=== PATIENT | male | born 1935 | race Caucasian/White ===

== ENCOUNTER → 2016-09-24 | Outpatient (CLI) | payer BC ==
[~2016-09-24] MED LIST: ASPEC81; CENTTAB41; FINA5TAB; FSM70; TERA5CAP; ZOCOR PO
[2016-09-24 18:26] LABS: ALT/SGPT 52 U/L (12-78); AST/SGOT 47 U/L (15-37); BLOOD UREA NITROGEN 23 mg/dl (7-18); BUN/CREATININE RATIO 22.7 (10-20); CALCIUM 9.1 mg/dl (8.5-10.1); CARBON DIOXIDE 29 mmol/L (21-32); CHLORIDE 106 mmol/L (98-107); GLUCOSE 93 mg/dl (70-99); POTASSIUM 4.4 mmol/L (3.5-5.1); SODIUM 141 mmol/L (136-145)
[2016-09-24 18:29] LABS: ALB/GLOB RATIO 1.3 (0.9-2); ALKALINE PHOSPHATASE 52 U/L (45-117); CHOLESTEROL 135 mg/dl (0-200); CHOLESTEROL/HDL RATIO 3.4; HDL CHOLESTEROL 40 mg/dl; LDL CHOLESTEROL CALCULATED 71 mg/dl; TRIGLYCERIDES 122 mg/dl (0-150); VERY LOW DENSITY LIPOPROT CALC 24 mg/dl
--- NOTE | 2016-10-02 12:09 | EDITING REQUIRED CODING QUERY ---
SUPPORTING DIAGNOSIS NEEDED A supporting diagnosis is required for the test/procedure performed on this patient in order for us to be reimbursed by the patient's insurance. Please provide a supporting diagnosis for the following test/procedure listed below next to the test name along with your signature. *If there is no additional diagnosis for this patient that would support the following test/procedure please document that below next to the test/procedure. Test(s)/Procedure(s) that require a supporting diagnosis: * VITAMIN D 1,25 DIHYDROXY DIAGNOSIS:Z87.39 * DOS: 09/24/16 Provider Signature: Date: Thank you Radha Whittaker Health Information Management For questions please call [phone]
== END | disposition home or self-care (01) ==
LOC: C.LABPVFM 10:58
PROVIDERS: ATTEND Internal Medicine Cardiovascular Disease
DX: Z00.00 Encounter for general adult medical examination without abnormal findings (principal); E78.5 Hyperlipidemia, unspecified; M85.80 Other specified disorders of bone density and structure, unspecified site; Z87.39 Personal history of other diseases of the musculoskeletal system and connective tissue

== ENCOUNTER → 2017-02-18 | Outpatient (CLI) | payer BC ==
[2017-02-18 18:23] LABS: BLOOD UREA NITROGEN 24 mg/dl (7-18)
== END | disposition home or self-care (01) ==
LOC: C.LABPVFM 14:03
PROVIDERS: ATTEND Urology
DX: N40.1 Benign prostatic hyperplasia with lower urinary tract symptoms (principal); N52.9 Male erectile dysfunction, unspecified

== ENCOUNTER → 2017-07-21 | Outpatient (CLI) | payer BC | END | disposition home or self-care (01) | LOC: C.MAMM 08:00 | PROVIDERS: ATTEND Family Medicine | DX: M81.8 Other osteoporosis without current pathological fracture (principal) ==

== ENCOUNTER → 2017-09-29 | Outpatient (CLI) | payer BC ==
[2017-09-29 14:38] LABS: ALBUMIN 3.8 gm/dl (3.4-5.0); ALT/SGPT 46 U/L (12-78); AST/SGOT 42 U/L (15-37); BLOOD UREA NITROGEN 21 mg/dl (7-18); CALCIUM 9.3 mg/dl (8.5-10.1); CARBON DIOXIDE 26 mmol/L (21-32); CHOLESTEROL 127 mg/dl (0-200); CREATININE 1.08 mg/dl (0.60-1.40); GLUCOSE 97 mg/dl (70-99); SODIUM 139 mmol/L (136-145)
[2017-09-29 14:40] LABS: ALKALINE PHOSPHATASE 43 U/L (45-117); LDL CHOLESTEROL CALCULATED 64 mg/dl; TOTAL PROTEIN 7.1 gm/dl (6.4-8.2)
== END | disposition home or self-care (01) ==
LOC: C.LABPVFM 09:15
PROVIDERS: ATTEND Internal Medicine Cardiovascular Disease
DX: E78.5 Hyperlipidemia, unspecified (principal); I10 Essential (primary) hypertension

== ENCOUNTER 2021-04-13 01:30 | Inpatient (IN) ==
[2021-04-13] MEDS ORDERED: SODIUM CHLORIDE 0.9% 500 ML IV ONE (01:45)
[2021-04-13 02:18] LABS: Basophils # (auto) 0.01 K/uL (0-0.2); Basophils % (auto) 0.3 %; Hematocrit (blood only) 42.9 % (42-52); Hemoglobin 14.9 g/dL (14.0-18.0); Lymphocytes # (auto) 0.32 K/uL (1.2-3.4); Lymphocytes % (auto) 8.6 %; Mean Corpuscular Hemoglobin 31.6 pg (25-34); Mean Corpuscular Hgb Conc 34.7 g/dL (32-36); Mean Corpuscular Volume 90.9 fL (80-100); Mean Platelet Volume 9.5 fL (7.4-10.4); Monocytes # (auto) 0.41 K/uL (0.11-0.59); Neutrophils # (auto) 2.98 K/uL (1.4-6.5); Neutrophils % (auto) 80.1 %; Platelet Count 157 K/uL (130-400); RDW Coefficient of Variation 13.5 % (11.5-14.5); RDW Standard Deviation 44.6 fL (36.4-46.3); Red Blood Count 4.72 M/uL (4.7-6.1); White Blood Count 3.72 K/uL (4.8-10.8)
[2021-04-13] MEDS ORDERED: PIPERACILLIN/TAZOBACTAM 4.5 GM/120 ML BAG IV ONE (02:20)
[2021-04-13] MEDS ORDERED: PIPERACILL/TAZOBAC CONSULT ACTIVE PRN (02:20)
[2021-04-13 02:30] LABS: INR 1.1 (0.9-1.1); Partial Thromboplastin Ratio 0.8; Partial Thromboplastin Time 22.2 Seconds (21.0-31.0); Prothrombin Time 10.8 Seconds (9.0-12.0)
[2021-04-13 02:39] LABS: Alanine Aminotransferase 49 U/L (12-78); Albumin Level 3.6 gm/dl (3.4-5.0); Aspartate Aminotransferase 42 U/L (15-37); Blood Urea Nitrogen 24 mg/dl (7-18); Calcium 9.1 mg/dl (8.5-10.1); Carbon Dioxide 28 mmol/L (21-32); Chloride 107 mmol/L (98-107); Est GFR (African American) 56.9 ml/min; Est GFR (Non-African American) 49.1 ml/min; Glucose 111 mg/dl (70-99); Magnesium 1.5 mg/dl (1.8-2.4); Potassium 3.8 mmol/L (3.5-5.1); Sodium 137 mmol/L (136-145)
[2021-04-13 02:47] LABS: Albumin Globulin Ratio 1.1 (0.9-2); Alkaline Phosphatase 45 U/L (45-117); Bilirubin,Total 1.7 mg/dl (0.2-1); Globulin 3.3 gm/dl (2.5-4.0); Total Protein 6.9 gm/dl (6.4-8.2); Troponin I < 0.015 ng/ml (0-0.045)
[2021-04-13] MEDS ORDERED: OPTIRAY 320 100ml IV ONE (03:29)
--- NOTE | 2021-04-13 03:35 | Emergency Department Note ---
Impression & Plan Sepsis, Mucosal tear of esophagus, Aspiration pneumonia Admit to the [facility] service ED Provider Note NAME: ANTON SOLOMON AGE: 85 SEX: M ARRIVES VIA: Walk-In INFORMANT: Patient, and his son ED PROVIDER(S): Patsy Davidson DO CHIEF COMPLAINT: Fever PLAN: Disposition: Admit to the [facility] Condition: Guarded MEDICAL DECISION MAKING: This is an 85-year-old male patient who presents to the emergency department with a fever. The patient had an EGD earlier today for a food impaction. This had caused a esophageal mucosal tear which had to be repaired with surgical clips. The patient was discharged home and developed a fever. The family brought him here for evaluation. He presented with tachycardia and hypotension. CT scan of the chest revealed no obvious abscess formation but there was some evidence of dependent findings in the lung which were concerning for aspiration pneumonia. The patient was treated with IV Zosyn. He was treated with IV crystalloid therapy for hypotension and tachycardia. The patient had no respiratory distress or hypoxia upon presentation. Triage Nursing notes reviewed and agree with them. Additional history obtained from son Prior medical records reviewed the EGD report Vital Signs: reviewed and remarkable for hypotension Differential diagnosis: Sepsis; septic shock, aspiration, abscess formation around the esophagus, hypoxia ER treatment provided: IV normal saline bolus IV Zosyn Diagnostics interpreted by me: ECG: Normal sinus rhythm at [address] segment elevation or signs of ischemia Cardiac Monitoring: Normal sinus rhythm at 94 Laboratory studies: See below Imaging studies: As per stat rad CT chest: No previous study for comparison. Heart is normal in size. There is moderate coronary artery atherosclerotic change. There are mild atherosclerotic changes in the thoracic aorta. Metallic foreign bodies associated with the GE junction likely reflect surgical vascular clips. There is mild esophageal wall thickening without a drainable fluid collection. Posterior mediastinal appears normal without abnormal mass or fluid collection. Central airways appear normal. There is some patchy areas of consolidation in the dependent lungs bilaterally and in the left upper lobe findings may reflect an aspiration pneumonia. Impression: Areas of dependent airspace opacity in the lower lobe suggesting an aspiration pneumonia. Surgical changes associated with GE junction. HPI: 85/M arrives for evaluation of fever. Patient had an EGD performed earlier today for him food impaction secondary to eating chestnuts. During that evaluation, the patient was noted to have a mucosal tear of the esophagus which was repaired with surgical clips. Later this evening, the patient developed a fever and was brought to the emergency department for evaluation. Upon presentation he was noted to be tachycardic and hypotensive. He was fluid resuscitated with IV crystalloid therapy and on CT scan of the chest no abscess formation was noted but there was evidence of dependent findings in the lung concerning for aspiration pneumonia. The patient was treated with IV Zosyn and normal saline solution. ROS: See above HPI for pertinent positives & negatives. A total of 10 systems reviewed and were otherwise negative. PAST MEDICAL HISTORY:See Below PAST SURGICAL HISTORY:See Below FAMILY HISTORY:See Below SOCIAL HISTORY:See Below HOME MEDICATIONS:See list ALLERGIES:None VITALS:See Below PHYSICAL EXAMINATION: HEENT: Head - normocephalic and atraumatic Pupils are equal, round, and reactive to light. Extraocular eye muscles are intact, and sclera are anicteric. Nose - moist nasal mucosa without discharge. Mouth - moist buccal mucosa. Oropharynx is nonerythematous and there is no tonsillar exudate or edema noted. Neck: Supple; no JVD, nuchal rigidity or cervical lymphadenopathy Heart: Tachycardic rate and regular rhythm. There is a normal S1 and S2 with no murmurs, clicks, or gallops appreciated. Lungs: Clear to auscultation bilaterally with no wheezes, rales, or rhonchi. Abdomen: Soft, completely nontender, nondistended, with good bowel sounds. There are no palpable pulsatile masses or hepatosplenomegaly. There is no guarding, rigidity, or rebound noted. Extremities: No evidence of cyanosis, clubbing, or edema. There are easily palpable peripheral pulses. Skin: warm and dry with good turgor and no rashes. ED COURSE: Times/Reassessments: 0145 the patient was evaluated in room B6. A septic protocol was performed. Reviewed the reports from the EGD from earlier today. 2 IV locks were initiated as the patient was hypotensive and he was bolused with IV normal saline solution. The patient was given a dose of IV Zosyn as his lactic acid was elevated. The patient was in no respiratory distress on exam. Reviewed the results of the laboratory studies and CT scan with the patient and his son Radha the case with the [facility] hospitalist and they will evaluate for further management. 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) Fusion of spine CERVICAL > UNSURE WHICH NUMBERS > SCREWS AND PLATE > ROM IS GOOD History of trigger finger Impotence Inhibited sexual excitement Osteoarthritis Osteopenia Skin cancer HX >NOT SURE WHICH TYPE Slow to wake up after anesthesia Surgical History H/O cervical spine surgery H/O prostate biopsy History of arthroscopy RIGHT History of cataract surgery (2018) Right History of colonoscopy (2007) History of hip surgery LEFT > PIN AND SCREWS History of prostate surgery TUNA Hx of vasectomy S/P trigger finger release X5 Family History Brother Prostate cancer Father Prostate cancer Daughter Breast cancer Denies family history of Ovarian cancer Myocardial infarction Colorectal cancer Social History Smoking Status: Former smoker Second Hand Exposure: No; Hx Alcohol Use: Yes Alcohol type: beer Alcohol Intake Frequency: 2-4 x/Month Alcohol Intake Frequency Comment: One or two drinks a week Hx Substance Use: No Preferred Language: Swazi Communication Ability: Effective Car Stereo Installer Required: No Beliefs That Will Affect Care: None marital status: Current Living Situation: Spouse current occupational status: retired Feels Safe at Home: Yes caffeine: No Dental Care, Regularly: No Physical Activity Frequency: Daily Physical Activity Frequency Comment: Walking 1-2 miles a day Seatbelt Use: always Sunscreen Use: Yes Assistive Devices: Oxygen - Continuous Allergies Allergies Allergy/AdvReac Type Severity Reaction Status Date / Time Penicillins Allergy Mild RASH Verified 04/13/21 01:34 Home Meds Home Medications Medication Instructions Recorded Confirmed aspirin 81 mg tablet,delayed 81 mg PO PM tab 03/29/19 04/13/21 release [id number] acid 300 1 tab PO PM 03/30/19 04/13/21 mcg-lycopene 600 mcg-lutein 300 mcg tablet (Centrum Silver Men) calcium carbonate 300 mg (750 mg) 600 mg PO QAM tab 05/13/19 04/13/21 chewable tablet cholecalciferol (vitamin D3) 125 5,000 unit PO QAM 05/14/19 04/13/21 mcg (5,000 unit) tablet (Vitamin D3) Previous Rx's Medication Instructions Recorded metoprolol succinate 50 mg 50 mg PO QAM #90 tab 05/09/20 tablet,extended release 24 hr terazosin 5 mg capsule 5 mg PO QPM #90 cap 10/12/20 triamterene 37.5 1 tab PO WEEKLY #30 tab 01/06/21 mg-hydrochlorothiazide 25 mg tablet finasteride 5 mg tablet 5 mg PO DAILY #90 tab 02/20/21 simvastatin 10 mg tablet 10 mg PO PM #90 tab 03/16/21 Results & Data (ED) Vital Signs Vital Signs - 24 hr 04/13/21 01:34 04/13/21 01:58 04/13/21 02:00 Temperature 37.2 C Temperature Source Oral Pulse Rate 110 H 99 H 103 H Pulse Rate from SpO2 Sensor 100 H 104 H Respiratory Rate 18 22 16 Respiratory Effort / Characteristics Non-Labored Spontaneous Respiratory Depth Normal Respiratory Pattern Regular Blood Pressure 96/61 L 89/63 L Blood Pressure Mean 72 71 Pulse Oximetry 89 L 91 92 Oxygen Delivery Method Room Air Oxygen Flow Rate Sepsis Recent Fever Within 48 Hours Yes Sepsis New/Unexplained Change in Mental Status No Sepsis Action Taken by Nursing Physician Notified 04/13/21 02:01 04/13/21 02:19 04/13/21 02:30 Temperature Temperature Source Pulse Rate 94 H 96 H Pulse Rate from SpO2 Sensor 96 H Respiratory Rate 18 20 Respiratory Effort / Characteristics Respiratory Depth Respiratory Pattern Blood Pressure 131/69 Blood Pressure Mean 89 Pulse Oximetry 92 93 94 Oxygen Delivery Method Nasal Cannula Nasal Cannula Oxygen Flow Rate 3 3 Sepsis Recent Fever Within 48 Hours Sepsis New/Unexplained Change in Mental Status Sepsis Action Taken by Nursing 04/13/21 02:38 04/13/21 03:00 04/13/21 04:00 Temperature 37.5 C Temperature Source Oral Pulse Rate 91 H 94 H Pulse Rate from SpO2 Sensor 90 94 H Respiratory Rate 21 17 Respiratory Effort / Characteristics Respiratory Depth Respiratory Pattern Blood Pressure 124/62 122/79 Blood Pressure Mean 82 93 Pulse Oximetry 91 92 Oxygen Delivery Method Oxygen Flow Rate Sepsis Recent Fever Within 48 Hours Sepsis New/Unexplained Change in Mental Status Sepsis Action Taken by Nursing 04/13/21 04:30 04/13/21 04:35 04/13/21 04:40 Temperature Temperature Source Pulse Rate 94 H 92 H 90 Pulse Rate from SpO2 Sensor 94 H 91 H 90 Respiratory Rate 17 18 17 Respiratory Effort / Characteristics Respiratory Depth Respiratory Pattern Blood Pressure 107/64 Blood Pressure Mean 78 Pulse Oximetry 92 93 93 Oxygen Delivery Method Oxygen Flow Rate Sepsis Recent Fever Within 48 Hours Sepsis New/Unexplained Change in Mental Status Sepsis Action Taken by Nursing 04/13/21 04:45 04/13/21 04:50 04/13/21 04:55 Temperature Temperature Source Pulse Rate 90 91 H 90 Pulse Rate from SpO2 Sensor 89 91 H 90 Respiratory Rate 19 19 18 Respiratory Effort / Characteristics Respiratory Depth Respiratory Pattern Blood Pressure Blood Pressure Mean Pulse Oximetry 92 93 92 Oxygen Delivery Method Oxygen Flow Rate Sepsis Recent Fever Within 48 Hours Sepsis New/Unexplained Change in Mental Status Sepsis Action Taken by Nursing 04/13/21 05:11 04/13/21 05:15 04/13/21 05:20 Temperature Temperature Source Pulse Rate 100 H 96 H Pulse Rate from SpO2 Sensor 99 H 103 H 96 H Respiratory Rate 23 18 18 Respiratory Effort / Characteristics Respiratory Depth Respiratory Pattern Blood Pressure Blood Pressure Mean Pulse Oximetry 89 L 93 92 Oxygen Delivery Method Oxygen Flow Rate Sepsis Recent Fever Within 48 Hours Sepsis New/Unexplained Change in Mental Status Sepsis Action Taken by Nursing 04/13/21 05:25 04/13/21 05:30 04/13/21 05:35 Temperature Temperature Source Pulse Rate 95 H 96 H 99 H Pulse Rate from SpO2 Sensor 95 H 96 H 99 H Respiratory Rate 17 24 19 Respiratory Effort / Characteristics Respiratory Depth Respiratory Pattern Blood Pressure Blood Pressure Mean Pulse Oximetry 91 92 91 Oxygen Delivery Method Oxygen Flow Rate Sepsis Recent Fever Within 48 Hours Sepsis New/Unexplained Change in Mental Status Sepsis Action Taken by Nursing 04/13/21 05:40 04/13/21 05:45 04/13/21 05:50 Temperature Temperature Source Pulse Rate 98 H 94 H 94 H Pulse Rate from SpO2 Sensor 98 H 95 H 95 H Respiratory Rate 17 18 20 Respiratory Effort / Characteristics Respiratory Depth Respiratory Pattern Blood Pressure Blood Pressure Mean Pulse Oximetry 91 91 91 Oxygen Delivery Method Oxygen Flow Rate Sepsis Recent Fever Within 48 Hours Sepsis New/Unexplained Change in Mental Status Sepsis Action Taken by Nursing 04/13/21 05:55 04/13/21 06:00 Temperature Temperature Source Pulse Rate 91 H 93 H Pulse Rate from SpO2 Sensor 91 H 94 H Respiratory Rate 20 17 Respiratory Effort / Characteristics Respiratory Depth Respiratory Pattern Blood Pressure 89/54 L Blood Pressure Mean 65 Pulse Oximetry 91 91 Oxygen Delivery Method Oxygen Flow Rate Sepsis Recent Fever Within 48 Hours Sepsis New/Unexplained Change in Mental Status Sepsis Action Taken by Nursing Laboratory Data Result diagrams: 04/13/21 01:45 04/13/21 10:10 Lab Results 04/13/21 04/13/21 04/13/21 Range/Units 01:45 01:45 01:45 WBC 3.72 L (4.8-10.8) K/uL RBC 4.72 (4.7-6.1) M/uL Hgb 14.9 (14.0-18.0) g/dL Hct 42.9 (42-52) % MCV 90.9 (80-100) fL MCH 31.6 (25-34) pg MCHC 34.7 (32-36) g/dL RDW Std Deviation 44.6 (36.4-46.3) fL RDW Coeff of Reina 13.5 (11.5-14.5) % Plt Count 157 (130-400) K/uL MPV 9.5 (7.4-10.4) fL Immature Gran % (Auto) 0.0 % Neut % (Auto) 80.1 % Lymph % (Auto) 8.6 % [place] % (Auto) 11.0 % Eos % (Auto) 0.0 % Baso % (Auto) 0.3 % Neut # (Auto) 2.98 (1.4-6.5) K/uL Lymph # (Auto) 0.32 L (1.2-3.4) K/uL [place] # (Auto) 0.41 (0.11-0.59) K/uL Eos # (Auto) 0.00 (0-0.5) K/uL Baso # (Auto) 0.01 (0-0.2) K/uL Immature Gran # (Auto) 0.00 (0.00-0.02) K/uL PT 10.8 (9.0-12.0) Seconds INR 1.1 (0.9-1.1) APTT 22.2 (21.0-31.0) Seconds PTT Ratio 0.8 Sodium 137 (136-145) mmol/L Potassium 3.8 (3.5-5.1) mmol/L Chloride 107 (98-107) mmol/L Carbon Dioxide 28 (21-32) mmol/L Anion Gap 2.0 L (3-11) BUN 24 H (7-18) mg/dl Creatinine 1.33 D (0.6-1.4) mg/dl Est Cr Clr Drug Dosing 43.0 ml/min Est GFR ( Amer) 56.9 ml/min Est GFR (Non-Af Amer) 49.1 ml/min BUN/Creatinine Ratio 18.0 (10-20) Glucose 111 H (70-99) mg/dl Lactate (0.4-2.0) mmol/L Calcium 9.1 (8.5-10.1) mg/dl Magnesium 1.5 L (1.8-2.4) mg/dl Total Bilirubin 1.7 H D (0.2-1) mg/dl AST 42 H (15-37) U/L ALT 49 (12-78) U/L Alkaline Phosphatase 45 (45-117) U/L Troponin I < 0.015 (0-0.045) ng/ml Total Protein 6.9 (6.4-8.2) gm/dl Albumin 3.6 (3.4-5.0) gm/dl Globulin 3.3 (2.5-4.0) gm/dl Albumin/Globulin Ratio 1.1 (0.9-2) Procalcitonin (0-0.5) ng/ml Urine Color Urine Appearance (Clear) Urine pH (4.5-7.5) Ur Specific [place] (1.000-1.030) Urine Protein (Negative) Urine Glucose (UA) (Negative) Urine Ketones (Negative) Urine Blood (Negative) Urine Nitrite (Negative) Urine Bilirubin (Negative) Urine Urobilinogen (Negative) Ur Leukocyte Esterase (Negative) COVID-19 Eval Order SARS-CoV-2 (PCR) (Negative) 04/13/21 04/13/21 04/13/21 Range/Units 01:45 02:00 02:00 WBC (4.8-10.8) K/uL RBC (4.7-6.1) M/uL Hgb (14.0-18.0) g/dL Hct (42-52) % MCV (80-100) fL MCH (25-34) pg MCHC (32-36) g/dL RDW Std Deviation (36.4-46.3) fL RDW Coeff of Reina (11.5-14.5) % Plt Count (130-400) K/uL MPV (7.4-10.4) fL Immature Gran % (Auto) % Neut % (Auto) % Lymph % (Auto) % [place] % (Auto) % Eos % (Auto) % Baso % (Auto) % Neut # (Auto) (1.4-6.5) K/uL Lymph # (Auto) (1.2-3.4) K/uL [place] # (Auto) (0.11-0.59) K/uL Eos # (Auto) (0-0.5) K/uL Baso # (Auto) (0-0.2) K/uL Immature Gran # (Auto) (0.00-0.02) K/uL PT (9.0-12.0) Seconds INR (0.9-1.1) APTT (21.0-31.0) Seconds PTT Ratio Sodium (136-145) mmol/L Potassium (3.5-5.1) mmol/L Chloride (98-107) mmol/L Carbon Dioxide (21-32) mmol/L Anion Gap (3-11) BUN (7-18) mg/dl Creatinine (0.6-1.4) mg/dl Est Cr Clr Drug Dosing ml/min Est GFR ( Amer) ml/min Est GFR (Non-Af Amer) ml/min BUN/Creatinine Ratio (10-20) Glucose (70-99) mg/dl Lactate (0.4-2.0) mmol/L Calcium (8.5-10.1) mg/dl Magnesium (1.8-2.4) mg/dl Total Bilirubin (0.2-1) mg/dl AST (15-37) U/L ALT (12-78) U/L Alkaline Phosphatase (45-117) U/L Troponin I (0-0.045) ng/ml Total Protein (6.4-8.2) gm/dl Albumin (3.4-5.0) gm/dl Globulin (2.5-4.0) gm/dl Albumin/Globulin Ratio (0.9-2) Procalcitonin 3.63 H (0-0.5) ng/ml Urine Color Urine Appearance (Clear) Urine pH (4.5-7.5) Ur Specific [place] (1.000-1.030) Urine Protein (Negative) Urine Glucose (UA) (Negative) Urine Ketones (Negative) Urine Blood (Negative) Urine Nitrite (Negative) Urine Bilirubin (Negative) Urine Urobilinogen (Negative) Ur Leukocyte Esterase (Negative) COVID-19 Eval Order Covid19 at [facility] SARS-CoV-2 (PCR) NEGATIVE (Negative) 04/13/21 04/13/21 04/13/21 Range/Units 02:09 03:51 05:13 WBC (4.8-10.8) K/uL RBC (4.7-6.1) M/uL Hgb (14.0-18.0) g/dL Hct (42-52) % MCV (80-100) fL MCH (25-34) pg MCHC (32-36) g/dL RDW Std Deviation (36.4-46.3) fL RDW Coeff of Reina (11.5-14.5) % Plt Count (130-400) K/uL MPV (7.4-10.4) fL Immature Gran % (Auto) % Neut % (Auto) % Lymph % (Auto) % [place] % (Auto) % Eos % (Auto) % Baso % (Auto) % Neut # (Auto) (1.4-6.5) K/uL Lymph # (Auto) (1.2-3.4) K/uL [place] # (Auto) (0.11-0.59) K/uL Eos # (Auto) (0-0.5) K/uL Baso # (Auto) (0-0.2) K/uL Immature Gran # (Auto) (0.00-0.02) K/uL PT (9.0-12.0) Seconds INR (0.9-1.1) APTT (21.0-31.0) Seconds PTT Ratio Sodium (136-145) mmol/L Potassium (3.5-5.1) mmol/L Chloride (98-107) mmol/L Carbon Dioxide (21-32) mmol/L Anion Gap (3-11) BUN (7-18) mg/dl Creatinine (0.6-1.4) mg/dl Est Cr Clr Drug Dosing ml/min Est GFR ( Amer) ml/min Est GFR (Non-Af Amer) ml/min BUN/Creatinine Ratio (10-20) Glucose (70-99) mg/dl Lactate 3.4 H* 4.1 H* (0.4-2.0) mmol/L Calcium (8.5-10.1) mg/dl Magnesium (1.8-2.4) mg/dl Total Bilirubin (0.2-1) mg/dl AST (15-37) U/L ALT (12-78) U/L Alkaline Phosphatase (45-117) U/L Troponin I (0-0.045) ng/ml Total Protein (6.4-8.2) gm/dl Albumin (3.4-5.0) gm/dl Globulin (2.5-4.0) gm/dl Albumin/Globulin Ratio (0.9-2) Procalcitonin (0-0.5) ng/ml Urine Color Yellow Urine Appearance Clear (Clear) Urine pH 5.5 (4.5-7.5) Ur Specific [place] 1.044 H (1.000-1.030) Urine Protein Negative (Negative) Urine Glucose (UA) Negative (Negative) Urine Ketones Negative (Negative) Urine Blood Negative (Negative) Urine Nitrite Negative (Negative) Urine Bilirubin Negative (Negative) Urine Urobilinogen Negative (Negative) Ur Leukocyte Esterase Negative (Negative) COVID-19 Eval Order SARS-CoV-2 (PCR) (Negative) Administered Medications Potassium Chloride/Sodium Chloride (Normal Saline W/20 Meq Kcl) 20 meq in 1,000 mls @ 100 mls/hr IV .Q10H [facility] Stop: 04/14/21 03:29 Last Admin: 04/13/21 08:23 Dose: 100 mls/hr Documented by: [id number] Pantoprazole Sodium 40 mg/ (Syringe) 10 mls @ 5 mls/min IV DAILY@1100 [facility] Stop: 05/13/21 10:59 Last Admin: 04/13/21 11:18 Dose: 5 mls/min Documented by: [id number] Magnesium Sulfate/Dextrose (Magnesium Sulfate / D5w) 1 gm in 100 mls @ 50 mls/hr IV Q2H [facility] Stop: 04/13/21 15:29 Last Admin: 04/13/21 13:16 Dose: 50 mls/hr Documented by: [id number] Infusion: 04/13/21 13:16 Dose: 50 mls/hr Documented by: [id number] Admin: 04/13/21 11:25 Dose: 50 mls/hr Documented by: [id number] Metronidazole (Flagyl) 500 mg in 100 mls @ 100 mls/hr IV Q8H [facility] Stop: 04/20/21 11:14 Last Infusion: 04/13/21 12:53 Dose: 0 mls/hr Documented by: [id number] Admin: 04/13/21 11:53 Dose: 100 mls/hr Documented by: [id number] Discontinued Medications Albuterol (Albut/Ipratrop 3mg/0.5mg Neb 3 Ml Vial) 3 ml NEB QIDR [facility] Stop: 05/13/21 06:59 Last Admin: 04/13/21 08:01 Dose: 3 ml Documented by: [id number] Sodium Chloride (Nss) 500 mls @ 999 mls/hr IV .Q31M [facility] Stop: 04/13/21 02:15 Last Infusion: 04/13/21 02:38 Dose: 0 mls/hr Documented by: [id number] Admin: 04/13/21 02:02 Dose: 999 mls/hr Documented by: [id number] Piperacillin Sod/Tazobactam Sod (Zosyn) 4.5 gm in 120 mls @ 240 mls/hr IV NOW ONE Stop: 04/13/21 02:49 Last Infusion: 04/13/21 03:03 Dose: 0 mls/hr Documented by: [id number] Admin: 04/13/21 02:33 Dose: 240 mls/hr Documented by: [id number] Sodium Chloride (Nss 1000ml) 1,000 mls @ 999 mls/hr IV .Q1H1M [facility] Stop: 04/13/21 06:42 Last Infusion: 04/13/21 06:59 Dose: 0 mls/hr Documented by: [id number] Admin: 04/13/21 05:53 Dose: 999 mls/hr Documented by: [id number] Vancomycin HCl 1,000 mg/ (Sodium Chloride) 270 mls @ 200 mls/hr IV Q24H [facility]; Protocol Stop: 04/20/21 05:59 Last Admin: 04/13/21 09:12 Dose: Not Given Documented by: [id number] Vancomycin HCl 1,750 mg/ (Sodium Chloride) 535 mls @ 200 mls/hr IV 0630 [facility] Stop: 04/13/21 09:11 Last Infusion: 04/13/21 08:45 Dose: 0 mls/hr Documented by: [id number] Admin: 04/13/21 06:04 Dose: 200 mls/hr Documented by: [id number] Pantoprazole Sodium 40 mg/ (Syringe) 10 mls @ 5 mls/min IV 0615 [facility] Stop: 04/13/21 07:00 Last Admin: 04/13/21 06:15 Dose: 5 mls/min Documented by: [id number] Aztreonam 1,000 mg/ Dextrose 110 mls @ 100 mls/hr IV Q8H [facility]; Protocol Stop: 04/20/21 07:59 Last Infusion: 04/13/21 11:13 Dose: 0 mls/hr Documented by: [id number] Admin: 04/13/21 10:07 Dose: 100 mls/hr Documented by: [id number] Ioversol (Optiray 320 100ml) 91 ml IV ONCE ONE Stop: 04/13/21 03:30 Last Admin: 04/13/21 03:31 Dose: 91 ml Documented by: [id number] Miscellaneous Information (Piperacill/Tazobac Consult Active) 1 ea N/A UD PRN PRN Reason: Consult Stop: 05/13/21 02:19 Last Admin: 04/13/21 02:33 Dose: 1 ea Documented by: [id number] Imaging Data Radiologist's Impression: Chest CT 04/13/21 03:[address] WITH CONTRAST CT DOSE: 433.08 mGy.cm HISTORY: Follow up study in a patient with shortness of breath. eval for esophageal abscess - recent perforation TECHNIQUE: Multiaxial CT images of the chest were performed following the IV administration of 91 cc of Optiray. A dose lowering technique was utilized adhering to the principles of ALARA. COMPARISON: Chest radiograph 04/12/2021 FINDINGS: Heterogeneity of the thyroid. Prominent subcarinal lymph nodes measure up to 9 mm. The heart is normal in size. Moderate to extensive coronary artery calcifications. Atherosclerosis of the thoracic aorta without aneurysm. Unremarkable pulmonary artery. No pneumothorax, pleural effusion or overt pul monary edema. Consolidative and groundglass opacities are most pronounced in the basal lower lobes with ill-defined groundglass densities scattered within the upper lobes and right middle lobe. 4 mm nodule of the right middle lobe. Mild tracheobronchial secretions. Surgical clips of the distal esophagus and gastroesophageal junction. Mild distal esophageal wall thickening. Suggested hepatic steatosis. Gynecomastia. Cervical spinal fusion hardware. Degenerative changes of the shoulders and spine. IMPRESSION: 1. Multilobar bilateral patchy groundglass and consolidative opacities, most pronounced within the basal lower lobes are compatible with pneumonia versus aspiration pneumonitis. 2. Postoperative changes of the distal esophagus and gastroesophageal junction with mild distal esophageal wall thickening. ACT 112: Negative or not required by law. Electronically signed by: Basilio De Paz M.D. 04/13/2021 9:11 AM Discharge Plan Visit Data Chief Complaint: Fever Stated Complaint: FEVER ED Provider: Patsy Davidson Discharge Problem: Sepsis, Mucosal tear of esophagus, Aspiration pneumonia Patient Disposition: Admitted As Inpatient Discharge Instructions Interventions: ED Discharge Assessment Last Done: 04/13/21 06:35 Discharge Problem: Sepsis Qualifiers: Sepsis type: sepsis due to unspecified organism Severe sepsis shock status: with septic shock Aspiration pneumonia Qualifiers: Aspiration pneumonia type: due to gastric secretions Laterality: bilateral Lung location: unspecified part of lung Qualified Code(s): J69.0 - Pneumonitis due to inhalation of food and vomit
[2021-04-13 05:20] LABS: Appearance Urine Clear (Clear); Bilirubin Urine Negative (Negative); Blood Urine Negative (Negative); Color Urine Yellow; Glucose Urine UA Negative (Negative); Ketones Urine Negative (Negative); Leukocyte Esterase Urine Negative (Negative); Nitrite Urine Negative (Negative); Protein Urine Negative (Negative); Specific Gravity Urine 1.044 (1.000-1.030); Urobilinogen Urine Negative (Negative); pH Urine 5.5 (4.5-7.5)
[2021-04-13] MEDS ORDERED: SODIUM CHLORIDE 0.9% 1000ML 1,000 ML IV SCH (05:42)
[2021-04-13] MEDS ORDERED: VANCOMYCIN CONSULT ACTIVE PRN (05:53)
--- NOTE | 2021-04-13 06:01 | History & Physical Report ---
Date of Service April 13, 2021 Assessment & Plan (1) Aspiration pneumonia: Plan: Aspiration pneumonia with hypoxia- Admit on vancomycin IV and aztreonam IV per pharmacokinetic monitoring NPO Duonebs every 4 hours while awake and every 2 hours when necessary. Nasal cannula oxygen, titrate to keep pulse ox around 94% No signs of esophageal perforation on CT chest with contrast (2) Sepsis associated hypotension: Plan: Patient will receive 2 L normal saline bolus in the ED, and was then placed on NSS + KCl 20 mEq 100 mils per hour. At this point in time please be admitted to telemetry, but if his pressure continues to decline in spite of fluid boluses, he will need to be admitted to the ICU. Likely source of sepsis is aspiration pneumonia and esophageal complications associated with food impaction (3) Hypoxia: Plan: See above (4) HTN (hypertension): Plan: Hypertension/PVCs- The patient will be admitted to telemetry for serial cardiac enzymes, serial EKG's, cardiac rhythm monitoring Patient is relatively hypotensive in the emergency department, with systolic decreased to 89, therefore will hold aspirin, metoprolol succinate, Terazosin, and triamterene/HCTZ. (5) Premature ventricular contractions: Plan: See above (6) Dysphagia: Plan: Dysphagia/status post removal of food impaction in esophagus Give pantoprazole 40 mg IV now and every morning (7) Food impaction of esophagus: Plan: See above (8) BPH w urinary obs/LUTS: Plan: Hold finasteride and Terazosin while n.p.o. Monitor urinary output, may require Dee (9) Dyslipidemia: Plan: Hold simvastatin while n.p.o. History of Present Illness Chief Complaint: The patient presents to the emergency department with fevers and chills recorded at home, after having an emergent EGD performed at 7:30PM to remove chestnut debris lodged in his esophagus causing severe dysphagia Primary Care Provider: Ira Merchant MD The patient is an 85-year-old male with a past medical history including BPH with LUTS, hyperlipidemia, moderate mitral regurgitation, dyslipidemia, PVCs, hypertension and bilateral lower extremity edema. He underwent an emergent EGD that completed 7:30 PM last evening, for food impaction due to chestnuts lodged in his esophagus. During the EGD, a mucosal tear was noted, which was treated with 2 metal clips, and because the patient was doing well, he was discharged to home with instructions to have a full liquid diet for 2 days, but return to the emergency department if he developed any fevers or chills. He reports that when he got home, he developed temperature, developed chills, and his son brought him into the ED for assessment. CT scan of chest with contrast: Metallic foreign bodies associated with the GE junction likely reflecting surgical vascular clips. There is mild esophageal wall thickening without a drainable fluid collection. Posterior mediastinum appears normal without abnormal mass or fluid collection. Central airways appear normal. There are patchy areas of consolidation in the dependent lungs bilaterally and in the left upper lobe suggesting aspiration pneumonia. The patient did receive 1 L normal saline from the ED, and I am giving a second additional liter now. Patient is mildly hypotensive, with lowest recorded pressure 89/46 and a HR in the upper 90s. Patient did receive Zosyn 4.55 g IV in the ED. He will be admitted on vancomycin IV and aztreonam IV per pharmacokinetic monitoring. We will give pantoprazole 40 mg IV now, and every morning. Patient will be monitored in the ED, and if his pressure does not respond to IV fluids bolus and/or worsens, he will be admitted to the ICU. Allergies Allergy/AdvReac Type Severity Reaction Status Date / Time Penicillins Allergy Mild RASH Verified 04/13/21 01:34 Home Medications Medication Instructions Recorded Confirmed Type aspirin 81 mg tablet,delayed 81 mg PO PM tab 03/29/19 04/13/21 History release kzhpcccv-qjf-uwwjo acid 300 1 tab PO PM 03/30/19 04/13/21 History mcg-lycopene 600 mcg-lutein 300 mcg tablet (Centrum Silver Men) calcium carbonate 300 mg (750 mg) 600 mg PO QAM tab 05/13/19 04/13/21 History chewable tablet cholecalciferol (vitamin D3) 125 5,000 unit PO QAM 05/14/19 04/13/21 History mcg (5,000 unit) tablet (Vitamin D3) metoprolol succinate 50 mg 50 mg PO QAM #90 tab 05/09/20 04/13/21 Rx tablet,extended release 24 hr terazosin 5 mg capsule 5 mg PO QPM #90 cap 10/12/20 04/13/21 Rx triamterene 37.5 1 tab PO WEEKLY #30 tab 01/06/21 04/13/21 Rx mg-hydrochlorothiazide 25 mg tablet finasteride 5 mg tablet 5 mg PO DAILY #90 tab 02/20/21 04/13/21 Rx simvastatin 10 mg tablet 10 mg PO PM #90 tab 03/16/21 04/13/21 Rx Past Med/Surg History Medical History Age-related osteoporosis without fracture Aortic regurgitation mild on 2009 echo Atrial ectopy Cervical vertebral fusion Dyslipidemia Enlarged prostate with lower urinary tract symptoms (LUTS) Fusion of spine CERVICAL > UNSURE WHICH NUMBERS > SCREWS AND PLATE > ROM IS GOOD History of trigger finger Impotence Inhibited sexual excitement Osteoarthritis Osteopenia Skin cancer HX >NOT SURE WHICH TYPE Slow to wake up after anesthesia Surgical History H/O cervical spine surgery H/O prostate biopsy History of arthroscopy RIGHT History of cataract surgery (2018) Right History of colonoscopy (2007) History of hip surgery LEFT > PIN AND SCREWS History of prostate surgery TUNA Hx of vasectomy S/P trigger finger release X5 Family History Brother Prostate cancer Father Prostate cancer Daughter Breast cancer Denies family history of Ovarian cancer Myocardial infarction Colorectal cancer Social History Smoking Status: Never smoker Second Hand Exposure: Yes (IN YRS PAST); Hx Alcohol Use: Yes Alcohol type: beer Alcohol Intake Frequency: 2-4 x/Month Alcohol Intake Frequency Comment: One or two drinks a week Hx Substance Use: No Preferred Language: Sudanese Communication Ability: Effective Phonograph Needle Tip Maker Required: No Beliefs That Will Affect Care: None marital status: Current Living Situation: Spouse current occupational status: retired Feels Safe at Home: Yes caffeine: No Dental Care, Regularly: No Physical Activity Frequency: Daily Physical Activity Frequency Comment: Walking 1-2 miles a day Seatbelt Use: always Sunscreen Use: Yes Assistive Devices: Denture - Upper, Denture - Lower and Glasses Review of Systems Review of Systems: The patient denies chest pain, palpitations, shortness of breath, dyspnea on exertion, cough, lower extremity swelling, nausea, vomiting, diarrhea , constipation, pelvic pain, blood in urine or stool, dysuria, urinary frequency or urgency, lightheadedness, dizziness, headache, memory loss, loss of consciousness, rash, abnormal bruising or bleeding, imbalance, focal or generalized weakness, numbness or tingling in arms or legs, generalized arthralgias or myalgias, back or neck pain, or night sweats. The review of systems is otherwise negative other than for that already noted above, and at least 10 systems have been reviewed. Physical Exam Physical Exam: The patient is awake, alert and oriented 3, well developed and well nourished, normocephalic and atraumatic, lying in bed and in no acute distress. HEENT--PERRL, EOMI, mucous membranes and oropharynx dry. Neck--supple. No JVD. No bruits. Thyroid normal, trachea midline, no adeno jolene. Heart--normal S1 and S2. No murmurs, rubs or gallops. Lungs--clear bilaterally, no respiratory distress, no accessory muscle use. Abdomen--normal bowel sounds and soft. Nontender. Mildly distended. Extremities--no cyanosis or clubbing. No edema. Dermatologic--normal skin turgor, normal color, no abnormal lymph nodes, no rash. Neurologic--cranial nerves II through XII grossly intact. Rheumatologic--normal range of motion. Psychiatric--normal affect. Results & Data Results & Data ([facility]) Vital Signs (Past 12 Hours) Vital Signs Temp Pulse Resp BP Pulse Ox 04/13/21 04:30 94 H 17 107/64 92 04/13/21 04:00 94 H 17 122/79 92 04/13/21 03:00 91 H 21 124/62 91 04/13/21 02:38 99.5 F 04/13/21 02:30 96 H 20 131/69 94 04/13/21 02:19 94 H 18 93 04/13/21 02:01 92 04/13/21 02:00 103 H 16 89/63 L 92 04/13/21 01:58 99 H 22 91 04/13/21 01:34 99.0 F 110 H 18 96/61 L 89 L Laboratory Results Laboratory Results WBC 3.72 K/uL (4.8-10.8) L 04/13/21 01:45 RBC 4.72 M/uL (4.7-6.1) 04/13/21 01:45 Hgb 14.9 g/dL (14.0-18.0) 04/13/21 01:45 Hct 42.9 % (42-52) 04/13/21 01:45 MCV 90.9 fL (80-100) 04/13/21 01:45 MCH 31.6 pg (25-34) 04/13/21 01:45 MCHC 34.7 g/dL (32-36) 04/13/21 01:45 RDW Std Deviation 44.6 fL (36.4-46.3) 04/13/21 01:45 RDW Coeff of Reina 13.5 % (11.5-14.5) 04/13/21 01:45 Plt Count 157 K/uL (130-400) 04/13/21 01:45 MPV 9.5 fL (7.4-10.4) 04/13/21 01:45 Immature Gran % (Auto) 0.0 % 04/13/21 01:45 Neut % (Auto) 80.1 % 04/13/21 01:45 Lymph % (Auto) 8.6 % 04/13/21 01:45 Dewey % (Auto) 11.0 % 04/13/21 01:45 Eos % (Auto) 0.0 % 04/13/21 01:45 Baso % (Auto) 0.3 % 04/13/21 01:45 Neut # (Auto) 2.98 K/uL (1.4-6.5) 04/13/21 01:45 Lymph # (Auto) 0.32 K/uL (1.2-3.4) L 04/13/21 01:45 Dewey # (Auto) 0.41 K/uL (0.11-0.59) 04/13/21 01:45 Eos # (Auto) 0.00 K/uL (0-0.5) 04/13/21 01:45 Baso # (Auto) 0.01 K/uL (0-0.2) 04/13/21 01:45 Immature Gran # (Auto) 0.00 K/uL (0.00-0.02) 04/13/21 01:45 PT 10.8 Seconds (9.0-12.0) 04/13/21 01:45 INR 1.1 (0.9-1.1) 04/13/21 01:45 APTT 22.2 Seconds (21.0-31.0) 04/13/21 01:45 PTT Ratio 0.8 04/13/21 01:45 Sodium 137 mmol/L (136-145) 04/13/21 01:45 Potassium 3.8 mmol/L (3.5-5.1) 04/13/21 01:45 Chloride 107 mmol/L (98-107) 04/13/21 01:45 Carbon Dioxide 28 mmol/L (21-32) 04/13/21 01:45 Anion Gap 2.0 (3-11) L 04/13/21 01:45 BUN 24 mg/dl (7-18) H 04/13/21 01:45 Creatinine 1.33 mg/dl (0.6-1.4) D 04/13/21 01:45 Est Cr Clr Drug Dosing 43.0 ml/min 04/13/21 01:45 Est GFR ( Amer) 56.9 ml/min 04/13/21 01:45 Est GFR (Non-Af Amer) 49.1 ml/min 04/13/21 01:45 BUN/Creatinine Ratio 18.0 (10-20) 04/13/21 01:45 Glucose 111 mg/dl (70-99) H 04/13/21 01:45 Lactate 4.1 mmol/L (0.4-2.0) H* 04/13/21 03:51 Calcium 9.1 mg/dl (8.5-10.1) 04/13/21 01:45 Magnesium 1.5 mg/dl (1.8-2.4) L 04/13/21 01:45 Total Bilirubin 1.7 mg/dl (0.2-1) H D 04/13/21 01:45 AST 42 U/L (15-37) H 04/13/21 01:45 ALT 49 U/L (12-78) 04/13/21 01:45 Alkaline Phosphatase 45 U/L (45-117) 04/13/21 01:45 Troponin I < 0.015 ng/ml (0-0.045) 04/13/21 01:45 Total Protein 6.9 gm/dl (6.4-8.2) 04/13/21 01:45 Albumin 3.6 gm/dl (3.4-5.0) 04/13/21 01:45 Globulin 3.3 gm/dl (2.5-4.0) 04/13/21 01:45 Albumin/Globulin Ratio 1.1 (0.9-2) 04/13/21 01:45 Procalcitonin 3.63 ng/ml (0-0.5) H 04/13/21 01:45 Urine Color Yellow 04/13/21 05:13 Urine Appearance Clear (Clear) 04/13/21 05:13 Urine pH 5.5 (4.5-7.5) 04/13/21 05:13 Ur Specific [place] 1.044 (1.000-1.030) H 04/13/21 05:13 Urine Protein Negative (Negative) 04/13/21 05:13 Urine Glucose (UA) Negative (Negative) 04/13/21 05:13 Urine Ketones Negative (Negative) 04/13/21 05:13 Urine Blood Negative (Negative) 04/13/21 05:13 Urine Nitrite Negative (Negative) 04/13/21 05:13 Urine Bilirubin Negative (Negative) 04/13/21 05:13 Urine Urobilinogen Negative (Negative) 04/13/21 05:13 Ur Leukocyte Esterase Negative (Negative) 04/13/21 05:13 COVID-19 Eval Order Covid19 at [facility] 04/13/21 02:00 SARS-CoV-2 (PCR) NEGATIVE (Negative) 04/13/21 02:[address] [facility] Patient: ANTON SOLOMON (Male) : 39 Status: ER Date: 04/13/21 03:50 Room #: History: eval for esophageal abscess - recent perforation Slices: [phone] Priors: Tech: Shimon Gabrielle @ [phone] Exams: CT CHEST With Contrast Contrast: IV Amt: 91 ml optiary 320 Accession Numbers: [id number] Referring Physician: REFERRED SELF Preliminary Findings Only See Final Report For Complete Findings CT CHEST With Contrast: No previous study for comparison. Heart is normal in size. There is moderate coronary artery atherosclerotic change. There are mild atherosclerotic changes in the thoracic aorta. Metallic foreign bodies associated with the gastroesophageal junction likely reflect surgical vascular clips. There is mild esophageal wall thickening without a drainable fluid collection. Posterior mediastinal appears normal without abnormal mass or fluid collection. Central airways appear normal. There is some patchy areas of consolidation in the dependent lungs bilaterally and in the left upper lobe. Findings may reflect an aspiration pneumonia. Impression: Areas of dependent airspace opacity in the lower lobes suggesting an aspiration pneumonia. Surgical changes associated with the gastroesophageal junction Radiologist: Graham Jasmine MD Study ready at 03:59 and initial results transmitted at 04:44 *This report constitutes a preliminary interpretation only. Non-acute findings felt to be unrelated to the clinical presentation may not be discussed in this report. The study will be interpreted and a final report will be generated by the local Radiologist the following shift. To reach the hospital radiology department call [phone]. If a discrepancy is found between the preliminary and final interpretations of this study, please notify us via our Client Portal at [email or web address] under QA Exams.You can also fax this report with a description of the discrepancy, or include the final report, to our daytime fax number [phone].If faxing, please indicate the severity of discrepancy using one of the following categories: [ ] 1 - Agree/Informational [ ] 2 - Unlikely to Affect Management [ ] 3 - Possible Eventual Change of Management [ ] 4 - Probable Immediate Change of Management For all other patient related information, please fax us at [phone]. Code Status & VTE Plan Code Status Full code VTE Prophylaxis Plan VTE Prophylaxis will be ordered: Yes PG Care Time/CCT Total # of Minutes Spent Total Time Spent with Patient: Total time spent is greater than 50% in coordination of care (as documented) at patient's floor/unit and/or counseling patient: Coding Level of Care Code 69973 Initial Inpt Care Lvl 3 Diagnoses Aspiration pneumonia J69.0 Food impaction of esophagus T18.128A Encounter type: initial encounter Dysphagia R13.10 Dysphagia type: unspecified BPH w urinary obs/LUTS N40.1; N13.8 Dyslipidemia E78.5 HTN (hypertension) I10 Premature ventricular contractions I49.3 Hypoxia R09.02 Sepsis associated hypotension A41.9; I95.9 (1) Food impaction of esophagus Encounter type: initial encounter Qualified Code(s): T18.128A - Food in esophagus causing other injury, initial encounter (2) Dysphagia Dysphagia type: unspecified Qualified Code(s): R13.10 - Dysphagia, unspecified
[2021-04-13] MEDS ORDERED: PANTOprazole 40 MG in SYRINGE 0 ML IV SCH (06:15)
[2021-04-13] MEDS ORDERED: VANCOMYCIN HCL 1,750 MG in SODIUM CHLORIDE 0.9% 500 ML IV SCH (06:30)
[2021-04-13] MEDS ORDERED: ALBUT/IPRATROP 3MG/0.5MG NEB 3 ML VIAL NEB SCH (07:00)
[2021-04-13] MEDS: VANCOMYCIN HCL 1,000 MG in SODIUM CHLORIDE 0.9% 250 ML IV SCH ×2 (07:00→09:12)
[2021-04-13] MEDS ORDERED: ONDANSETRON INJ 2 MG/ML 2 ML VIAL IV PRN (07:08)
[2021-04-13] MEDS ORDERED: diphenhydrAMINE 50 MG/ML VIAL IV PRN (07:08)
[2021-04-13] MEDS ORDERED: AZTREONAM 1,000 MG in DEXTROSE 5% 100 ML IV SCH (08:00)
[2021-04-13] MEDS: NSS + 20MEQ KCL 20 MEQ/1,000 ML BAG IV SCH ×2 (08:23→19:51)
--- NOTE | 2021-04-13 09:13 | CT Scan Report ---
CHEST CT WITH CONTRAST CT DOSE: 433.08 mGy.cm HISTORY: Follow up study in a patient with shortness of breath. eval for esophageal abscess - recent perforation TECHNIQUE: Multiaxial CT images of the chest were performed following the IV administration of 91 cc of Optiray. A dose lowering technique was utilized adhering to the principles of ALARA. COMPARISON: Chest radiograph 04/12/2021 FINDINGS: Heterogeneity of the thyroid. Prominent subcarinal lymph nodes measure up to 9 mm. The heart is tana l in size. Moderate to extensive coronary artery calcifications. Atherosclerosis of the thoracic aort a without aneurysm. Unremarkable pulmonary artery. No pneumothorax, pleural effusion or overt pulmona ry edema. Consolidative and groundglass opacities are most pronounced in the basal lower lobes with i ll-defined groundglass densities scattered within the upper lobes and right middle lobe. 4 mm nodule of the right middle lobe. Mild tracheobronchial secretions. Surgical clips of the distal esophagus an d gastroesophageal junction. Mild distal esophageal wall thickening. Suggested hepatic steatosis. Automobile Mechanic Motor ecomastia. Cervical spinal fusion hardware. Degenerative changes of the shoulders and spine. IMPRESSION: 1. Multilobar bilateral patchy groundglass and consolidative opacities, most pronounced within the ba [place] lower lobes are compatible with pneumonia versus aspiration pneumonitis. 2. Postoperative changes of the distal esophagus and gastroesophageal junction with mild distal esoph ageal wall thickening. ACT 112: Negative or not required by law. Electronically signed by: Basilio De Paz M.D. 04/13/2021 9:11 AM
[2021-04-13] MEDS ORDERED: ALBUT/IPRATROP 3MG/0.5MG NEB 3 ML VIAL NEB PRN (10:22)
[2021-04-13 10:35] LABS: BUN Creatinine Ratio 17.9 (10-20); Creatinine Clr Calc Pharmacy 49.6 ml/min; Est GFR (African American) 60.7 ml/min; Est GFR (Non-African American) 52.4 ml/min; Magnesium 1.6 mg/dl (1.8-2.4); Potassium 4.3 mmol/L (3.5-5.1)
[2021-04-13] MEDS ORDERED: cefTRIAXone SODIUM 1,000 MG in DEXTROSE 5% 50 ML IV SCH (11:15)
[2021-04-13] MEDS: PANTOprazole 40 MG in SYRINGE 0 ML IV SCH (11:18)
[2021-04-13] MEDS: MAGNESIUM SULFATE / D5W 1 GM/100 ML BAG IV SCH ×2 (11:25→13:16)
[2021-04-13] MEDS: metroNIDAZOLE 500 MG/100 ML BAG IV SCH ×2 (11:53→19:51)
--- NOTE | 2021-04-13 15:08 | Communication Note ---
Date of Service: April 13, 2021 Patient seen and examined this morning and again this afternoon. His lactate continues to be elevated. His other labs are normalizing. Patient continues on IV fluids at 100 mL an hour. He denies any fever or chills. He has no abdominal pain. He is in no obvious distress. PHYSICAL EXAM: GENERAL : No acute distress EYES: No icterus, gaze conjugate NOSE: No evidence of epistaxis MOUTH: No lesions or candidiasis NECK: Supple LUNGS: CTA B/L, no wheezes, rales or rhonchi HEART: Regular, rate controlled ABDOMEN: Soft, NT, ND, BS Present. No pain to deep palpation. No guarding. No rebound tenderness. EXTREMITIES: No LE edema, pedal pulses intact and equal bilaterally. NEURO: A&OX3 04/13/21 01:45 04/13/21 10:10 Laboratory Tests 04/13/21 04/13/21 04/13/21 02:09 03:51 10:10 Lactate 3.4 H* 4.1 H* 3.9 H* 04/13/21 11:56 Lactate 4.4 H* Changes made to patient throughout the day: Aspiration pneumonia: * Elevated lactic acid * Aztreonam and vancomycin discontinued and patient started on ceftriaxone and metronidazole * Blood cultures x2 are pending * Sputum sample is pending * Continue IV fluids at 100 mL an hour; strict I's and O's Sepsis associated hypotension: * Resolved * Continue antibiotics * Continue IV fluids Elevated lactic acid: * Lactic acid remains elevated in spite of of IV fluids * Continue to follow reflex labs * Cumulative I's and O's negative 1.93 L Continue to monitor the patient in the telemetry unit. No indication for intensive care at this time. We will continue to monitor patient status.
[2021-04-13] MEDS ORDERED: INFLUENZA VACCINE HIGH DOSE PF 65+ 0.7 ML SYR IM ONE (15:30)
--- NOTE | 2021-04-13 15:52 | Electrocardiogram Report ---
Test Reason : Blood Pressure : / mmHG Vent. Rate : 100 BPM Atrial Rate : 100 BPM P-R Int : 148 ms QRS Dur : 070 ms QT Int : 324 ms P-R-T Axes : 043 087 022 degrees QTc Int : 417 ms Poor data quality, interpretation may be adversely affected Sinus rhythm with Premature supraventricular complexes Otherwise Normal ECG When compared with ECG of 12-APR-2021 15:58, Premature supraventricular complexes are now Present Vent. rate has increased BY 37 BPM QRS duration has decreased Confirmed by Jeff Cleaning ([id number]) on 04/13/2021 3:52:00 PM Referred By: REFERRED SELF Confirmed By:Jeff Cleaning
[2021-04-13] MEDS: cefTRIAXone SODIUM 2,000 MG in DEXTROSE 5% 50 ML IV SCH (17:52)
[2021-04-13] MEDS ORDERED: ACETAMINOPHEN 1,000 MG/100 ML VIAL IV STA (23:46)
[2021-04-14] MEDS: metroNIDAZOLE 500 MG/100 ML BAG IV SCH ×3 (03:17→19:49)
[2021-04-14 06:17] LABS: INR 1.1 (0.9-1.1); Partial Thromboplastin Time 25.9 Seconds (21.0-31.0); Prothrombin Time 11.3 Seconds (9.0-12.0)
[2021-04-14 06:41] LABS: Albumin Level 2.6 gm/dl (3.4-5.0); BUN Creatinine Ratio 22.2 (10-20); Est GFR (African American) 74.9 ml/min; Est GFR (Non-African American) 64.6 ml/min; Magnesium 2.3 mg/dl (1.8-2.4); Potassium 4.1 mmol/L (3.5-5.1)
[2021-04-14 06:47] LABS: Albumin Globulin Ratio 0.8 (0.9-2); Bilirubin,Total 1.1 mg/dl (0.2-1); Globulin 3.2 gm/dl (2.5-4.0); Total Protein 5.8 gm/dl (6.4-8.2)
[2021-04-14 07:23] LABS: Hematocrit (blood only) 34.1 % (42-52); Hemoglobin 11.3 g/dL (14.0-18.0); Mean Corpuscular Hemoglobin 31.2 pg (25-34); Mean Corpuscular Hgb Conc 33.1 g/dL (32-36); Mean Corpuscular Volume 94.2 fL (80-100); Platelet Count 133 K/uL (130-400); RDW Coefficient of Variation 14.1 % (11.5-14.5); RDW Standard Deviation 48.7 fL (36.4-46.3); Red Blood Count 3.62 M/uL (4.7-6.1); White Blood Count 7.15 K/uL (4.8-10.8)
[2021-04-14 07:30] LABS: Basophils # (auto) 0.02 K/uL (0-0.2); Basophils % (auto) 0.3 %; Eosinophils # (auto) 0.13 K/uL (0-0.5); Eosinophils % (auto) 1.8 %; Immature Granulocytes # (auto) 0.02 K/uL (0.00-0.02); Immature Granulocytes % (auto) 0.3 %; Lymphocytes # (auto) 0.81 K/uL (1.2-3.4); Lymphocytes % (auto) 11.3 %; Monocytes # (auto) 0.54 K/uL (0.11-0.59); Monocytes % (auto) 7.6 %; Neutrophils # (auto) 5.63 K/uL (1.4-6.5); Neutrophils % (auto) 78.7 %
--- NOTE | 2021-04-14 11:35 | XRay Report ---
XR chest 1V portable HISTORY: Hypoxia. Aspiration pneumonia. COMPARISON: Chest CT 04/13/2021. FINDINGS: No pneumothorax. No pleural effusions. Patchy bibasilar airspace opacities are again noted. This is similar to the prior chest CT. The heart is top normal in size. Cervical spinal fusion hardw are is noted. IMPRESSION: No change in the patchy bibasilar airspace opacities. ACT 112: Negative or not required by law. Electronically signed by: Clark Oh M.D. 04/14/2021 11:34 AM
[2021-04-14 11:45] LABS: Hematocrit (blood only) 36.7 % (42-52); Hemoglobin 12.3 g/dL (14.0-18.0)
[2021-04-14] MEDS: PANTOprazole 40 MG in SYRINGE 0 ML IV SCH (11:57)
--- NOTE | 2021-04-14 17:13 | Hospitalist Progress Note ---
Date of Service April 14, 2021 Assessment & Plan (1) Aspiration pneumonia: Plan: Probable aspiration pneumonia with hypoxia- Admitted on vancomycin IV and aztreonam IV Changed to ceftriaxone and metronidazole Day #2 of IV antibiotics Changed to soft bite-size diet Duonebs as needed. Nasal cannula oxygen, titrate to keep pulse ox around 94% No signs of esophageal perforation on CT chest with contrast Previous EGD procedure report reviewed. Okay to eat as tolerated (2) Sepsis associated hypotension: Plan: Patient hydrated per sepsis protocol on day of admission Lactic acid now down to 1.2 IV fluids stopped Continue treatment with ceftriaxone and metronidazole Continue to monitor on telemetry Blood pressure stable Likely source of sepsis is aspiration pneumonia and esophageal complications associated with food impaction (3) Hypoxia: Plan: Now resolved Monitor SaO2 per protocol Chest x-ray with persistent bibasilar opacities No evidence of mucous plugging or white out (4) HTN (hypertension): Plan: Hypertension/PVCs- Medication were held due to hypotension on day of admission Resume aspirin, metoprolol succinate, Terazosin, and triamterene/HCTZ. Monitor vital signs per protocol (5) Premature ventricular contractions: Plan: Now hemodynamically stable Continue to monitor on telemetry (6) Dysphagia: Plan: Dysphagia/status post removal of food impaction in esophagus Change pantoprazole to 40 mg po every morning No reports of GERD (7) Food impaction of esophagus: Plan: Previous EGD Small bites and soft food (8) BPH w urinary obs/LUTS: Plan: Resume finasteride and Terazosin (9) Dyslipidemia: Plan: Resume simvastatin Plan: Resume home medications. Possible discharge tomorrow Admission and Anticipated Discharge Date Admission Date: April 13, 2021 Subjective Attending: Dr. Fan Patient seen and examined in his room. Son is present. Breath sounds are clear bilaterally. No chest pain or tightness. Patient has no nausea or vomiting. No fever or chills. Patient denies any acute complaints. Review of Systems Review of Systems: All systems reviewed & are unremarkable except as noted in Subjective Physical Exam Physical Exam: GENERAL : No acute distress EYES: No icterus, gaze conjugate NOSE: No evidence of epistaxis MOUTH: No lesions or candidiasis NECK: Supple LUNGS: CTA B/L, no wheezes, rales or rhonchi HEART: Regular, rate controlled ABDOMEN: Soft, NT, ND, BS Present EXTREMITIES: No LE edema, pedal pulses intact NEURO: A&OX3 Results & Data Results & Data ([facility]) Vital Signs (Past 12 Hours) Vital Signs Temp Pulse Resp BP BP Pulse Ox 04/14/21 15:57 36.9 C 74 20 143/71 H 91 04/14/21 11:00 37.1 C 74 15 167/80 H 92 04/14/21 07:00 36.4 C L 72 16 137/70 93 Laboratory Results 04/14/21 11:35 04/14/21 05:34 Diagnostic Findings Chest X-Ray 04/14/21 10:49 XR chest 1V portable HISTORY: Hypoxia. Aspiration pneumonia. COMPARISON: Chest CT 04/13/2021. FINDINGS: No pneumothorax. No pleural effusions. Patchy bibasilar airspace opacities are again noted. This is similar to the prior chest CT. The heart is top normal in size. Cervical spinal fusion hardware is noted. IMPRESSION: No change in the patchy bibasilar airspace opacities. ACT 112: Negative or not required by law. Electronically signed by: Clark Oh M.D. 04/14/2021 11:34 AM PG Care Time/CCT Total # of Minutes Spent Total Time Spent with Patient: Total time spent is greater than 50% in coordination of care (as documented) at patient's floor/unit and/or counseling patient: Coding Level of Care Code 38285 Subseq Hosp Care Lvl 2 Diagnoses Aspiration pneumonia J69.0 Sepsis associated hypotension A41.9; I95.9 Hypoxia R09.02 HTN (hypertension) I10 Premature ventricular contractions I49.3 Dysphagia R13.10 Dysphagia type: unspecified Food impaction of esophagus T18.128A Encounter type: initial encounter BPH w urinary obs/LUTS N40.1; N13.8 Dyslipidemia E78.5 Time Spent (min) 30 (1) Dysphagia Dysphagia type: unspecified Qualified Code(s): R13.10 - Dysphagia, unspecified (2) Food impaction of esophagus Encounter type: initial encounter Qualified Code(s): T18.128A - Food in esophagus causing other injury, initial encounter
[2021-04-14] MEDS: cefTRIAXone SODIUM 2,000 MG in DEXTROSE 5% 50 ML IV SCH (17:25)
[2021-04-14] MEDS ORDERED: ACETAMINOPHEN 325 MG TAB PO PRN (20:34)
[2021-04-14] MEDS ORDERED: SIMVASTATIN 10 MG TAB PO SCH (21:00)
[2021-04-14] MEDS ORDERED: ASPIRIN 81 MG ECTAB PO SCH (21:00)
[2021-04-14] MEDS ORDERED: TERAZOSIN HCL 5 MG CAP PO SCH (21:00)
[2021-04-15] MEDS: metroNIDAZOLE 500 MG/100 ML BAG IV SCH ×2 (04:20→10:43)
[2021-04-15 04:52] LABS: Basophils # (auto) 0.01 K/uL (0-0.2); Basophils % (auto) 0.1 %; Eosinophils # (auto) 0.21 K/uL (0-0.5); Eosinophils % (auto) 3.1 %; Hematocrit (blood only) 36.7 % (42-52); Hemoglobin 12.3 g/dL (14.0-18.0); Immature Granulocytes # (auto) 0.03 K/uL (0.00-0.02); Immature Granulocytes % (auto) 0.4 %; Lymphocytes # (auto) 0.85 K/uL (1.2-3.4); Lymphocytes % (auto) 12.5 %; Mean Corpuscular Hemoglobin 31.3 pg (25-34); Mean Corpuscular Hgb Conc 33.5 g/dL (32-36); Mean Corpuscular Volume 93.4 fL (80-100); Mean Platelet Volume 9.5 fL (7.4-10.4); Monocytes # (auto) 0.35 K/uL (0.11-0.59); Monocytes % (auto) 5.1 %; Neutrophils # (auto) 5.36 K/uL (1.4-6.5); Neutrophils % (auto) 78.8 %; Platelet Count 143 K/uL (130-400); RDW Coefficient of Variation 13.6 % (11.5-14.5); RDW Standard Deviation 47.1 fL (36.4-46.3); Red Blood Count 3.93 M/uL (4.7-6.1); White Blood Count 6.81 K/uL (4.8-10.8)
[2021-04-15 05:12] LABS: BUN Creatinine Ratio 17.7 (10-20); Calcium 8.5 mg/dl (8.5-10.1); Creatinine Clr Calc Pharmacy 56.1 ml/min; Est GFR (African American) 77.5 ml/min; Est GFR (Non-African American) 66.9 ml/min; Magnesium 2.1 mg/dl (1.8-2.4); Potassium 3.8 mmol/L (3.5-5.1)
[2021-04-15 05:15] LABS: Albumin Globulin Ratio 0.9 (0.9-2); Bilirubin,Total 0.9 mg/dl (0.2-1); Globulin 3.4 gm/dl (2.5-4.0); Total Protein 6.4 gm/dl (6.4-8.2)
[2021-04-15 05:17] LABS: Partial Thromboplastin Time 25.6 Seconds (21.0-31.0); Prothrombin Time 10.3 Seconds (9.0-12.0)
[2021-04-15] MEDS ORDERED: FINASTERIDE 5 MG TAB PO SCH (09:00)
[2021-04-15] MEDS ORDERED: PANTOprazole 40 MG TAB PO SCH (09:00)
[2021-04-15] MEDS ORDERED: METOPROLOL SUCC 50MG EXT REL TAB PO SCH (09:00)
--- NOTE | 2021-04-23 10:21 | Discharge Summary ---
Date of Service April 15, 2021 Admission HPI Per Admitting Provider The patient is an 85-year-old male with a past medical history including BPH with LUTS, hyperlipidemia, moderate mitral regurgitation, dyslipidemia, PVCs, hypertension and bilateral lower extremity edema. He underwent an emergent EGD that completed 7:30 PM last evening, for food impaction due to chestnuts lodged in his esophagus. During the EGD, a mucosal tear was noted, which was treated with 2 metal clips, and because the patient was doing well, he was discharged to home with instructions to have a full liquid diet for 2 days, but return to the emergency department if he developed any fevers or chills. He reports that when he got home, he developed temperature, developed chills, and his son brought him into the ED for assessment. CT scan of chest with contrast: Metallic foreign bodies associated with the GE junction likely reflecting surgical vascular clips. There is mild esophageal wall thickening without a drainable fluid collection. Posterior mediastinum appears normal without abnormal mass or fluid collection. Central airways appear normal. There are patchy areas of consolidation in the dependent lungs bilaterally and in the left upper lobe suggesting aspiration pneumonia. The patient did receive 1 L normal saline from the ED, and I am giving a second additional liter now. Patient is mildly hypotensive, with lowest recorded pressure 89/46 and a HR in the upper 90s. Patient did receive Zosyn 4.55 g IV in the ED. He will be admitted on vancomycin IV and aztreonam IV per pharmacokinetic monitoring. We will give pantoprazole 40 mg IV now, and every morning. Patient will be monitored in the ED, and if his pressure does not respond to IV fluids bolus and/or worsens, he will be admitted to the ICU. Admission Exam Per Admitting Provider The patient is awake, alert and oriented 3, well developed and well nourished, normocephalic and atraumatic, lying in bed and in no acute distress. HEENT--PERRL, EOMI, mucous membranes and oropharynx dry. Neck--supple. No JVD. No bruits. Thyroid normal, trachea midline, no adenopathy. Heart--normal S1 and S2. No murmurs, rubs or gallops. Lungs--clear bilaterally, no respiratory distress, no accessory muscle use. Abdomen--normal bowel sounds and soft. Nontender. Mildly distended. Extremities--no cyanosis or clubbing. No edema. Dermatologic--normal skin turgor, normal color, no abnormal lymph nodes, no rash. Neurologic--cranial nerves II through XII grossly intact. Rheumatologic--normal range of motion. Psychiatric--normal affect. Principal Diagnosis Aspiration Pneumonia Food Impaction of the Esophogus Discharge Exam General: A&Ox3. NAD. Cooperative. HEENT: Atraumatic, normocephalic. Pulm: CTAB A&P. -wheezes, -rales, -rhonchi. Symmetrical chest rise. No increase work of breathing. No respiratory distress. Cardiac: RRR, -mrg. Radial pulses intact and symmetrical. Abdominal: NT/ND Extremitie: Moving all extremities equally, no edema Discharge Data Allergies Allergy/AdvReac Type Severity Reaction Status Date / Time Penicillins Allergy Mild RASH Verified 04/18/21 09:54 Consultations 04/13/21 04:54 ED Decision to Admit Stat Ordered Studies 04/13/21 03:03 CT chest diagnostic w con Urgent Hospital Course (1) Aspiration pneumonia: Probable aspiration pneumonia with hypoxia- Admitted on vancomycin IV and aztreonam IV Changed to ceftriaxone and metronidazole durign admit Changed to soft bite-size diet Duonebs as needed. Nasal cannula oxygen, titrated to keep pulse ox around 94%. Breathing well on room air at d/c No signs of esophageal perforation on CT chest with contrast Previous EGD procedure report reviewed. Okay to eat as tolerated Discharged to complete course of Cefdinir/Flagyl x10 days (2) Sepsis associated hypotension: Patient hydrated per sepsis protocol on day of admission Lactic normalized Abx were used as above Blood pressure remained stable Likely source of sepsis is aspiration pneumonia and esophageal complications associated with food impaction (3) Hypoxia: resolved Chest x-ray with persistent bibasilar opacities No evidence of mucous plugging or white out (4) HTN (hypertension): Hypertension/PVCs- Medication were held due to hypotension on day of admission Resumed aspirin, metoprolol succinate, Terazosin, and triamterene/HCTZ. Finasteride adjusted to 5mg qhs Monitor vital signs per protocol (5) Premature ventricular contractions: hemodynamically stable followed on tele, no acute events (6) Dysphagia: Dysphagia/status post removal of food impaction in esophagus Pt placed on pantoprazole to 40 mg po every morning No reports of GERD (7) Food impaction of esophagus: Previous EGD as noted Small bites and soft food Scheduled for outpt followup w/ GI 04/25/21 (8) BPH w urinary obs/LUTS: Resumed finasteride (at 5mg) and Terazosin (9) Dyslipidemia: Resumed simvastatin Total Time Total Time Spent Total Time Spent (In Minutes): Time spend coordinating discharge on day of discharge approximately 20 minutes including documentation, direct patietn care, review of labs/images, and discussion of case with PA/care team. Discharge Plan Discharge Items Patient Disposition: Home - Self-Care Reason For Visit: SEPSIS,ASPIRATION PNEUMONIA,ESOPHAGEAL MUCOSAL TEA Discharge Diagnosis: Aspiration pneumonia, esophageal tear Activity: Resume your previous activity Lifting: Gradually increase as tolerated Bathing: No limitations Exercise/Sports: Wait until after follow-up appointment Weightbearing: Full weightbearing Non-emergency contact: Primary Care Provider and Director Global Intelligence Call non-emergency contact if: you have any medication questions and you have a fever Follow-up/Referrals: Ira Merchant MD [Primary Care Provider] - Diet: Heart Healthy Diet Texture: Mechanical soft (ground) Diet Comment: Avoid nuts, chips, hard sharp foods Addtl Attending Provider Instructions: You were admitted with presumed sepsis. Your lactic acid was very high. You were started on IV antibiotics and recovered well. You are being discharged home on cefdinir and metronidazole. Please take both of these antibiotics as directed until completed. You should take these medications with food. You sh ould avoid any changes to diet or activity until you see gastroenterology on 04/25/2021. If you develop any fever or further abdominal pain, please contact your toy designer. Pending Studies at Discharge: No Stand-Alone Forms: [facility] Medications and DC Order Prescriptions: New acetaminophen 325 mg Tablet 650 mg PO Q4H PRNQty: 0 RF: 0 cefdinir 300 mg capsule 300 mg PO BID 10 Days Qty: 20 RF: 0 metronidazole 500 mg tablet 500 mg PO BID 10 Days Qty: 20 RF: 0 Continued metoprolol succinate 50 mg tablet extended release 24 hr 50 mg PO QAM Qty: 90 RF: 3 terazosin 5 mg capsule 5 mg PO QPM Qty: 90 RF: 3 triamterene-hydrochlorothiazid 37.5-25 mg tablet 1 tab PO WEEKLY Qty: 30 RF: 2 simvastatin 10 mg tablet 10 mg PO PM Qty: 90 RF: 3 aspirin 81 mg tablet,delayed release (DR/EC) 81 mg PO PM RF: 0 Centrum Silver Men 300-600-300 mcg tablet 1 tab PO PM RF: 0 calcium carbonate 300 mg (750 mg) tablet,chewable 600 mg PO QAM RF: 0 cholecalciferol (vitamin D3) [Vitamin D3] 5,000 unit Tablet 5,000 unit PO QAM RF: 0 Changed finasteride 5 mg tablet 5 mg PO HS Qty: 90 RF: 3 No Action ropinirole 0.25 mg tablet 0.25 mg PO HS Qty: 30 RF: 2 Discharge Orders: Discharge Order (Routine); Ordered 04/15/21 Ordered By: Markus Lujan Admission Data Admit Date/Time: 04/13/21 06:01 Attending Provider: Shiva Fan Admit Provider: Christopher Santiago Primary Care Provider: Ira Merchant Other Providers: Christopher Santiago Other Interventions: Discharge Summary Assessment (RN) Last Done: 04/15/21 12:15 Coding Level of Care Code D/C DAY MANAGEMENT <30 MINS Diagnoses Aspiration pneumonia J69.0 Sepsis associated hypotension A41.9; I95.9 Hypoxia R09.02 HTN (hypertension) I10 Premature ventricular contractions I49.3 Dysphagia R13.10 Dysphagia type: unspecified Food impaction of esophagus T18.128A Encounter type: initial encounter BPH w urinary obs/LUTS N40.1; N13.8 Dyslipidemia E78.5
== END 2021-04-15 12:53 | disposition home or self-care (01) | DRG 871 ==
LOC: ED 01:30 → SUATTDRO 06:01 → EDINP 06:01 → 1E 06:35